=== PATIENT | male | born 1975 | race Two or more races ===

== ENCOUNTER 2018-02-15 10:29 | Emergency (ER) | payer OTHER ==
[~2018-02-15] VITALS: Ht 162.6 cm; Wt 88.5 kg
[~2018-02-15 10:29] MED LIST: SYNTHROID175 MCG PO
== END 2018-02-15 12:23 | disposition home or self-care (01) ==
LOC: ER 10:29
DX: L03.032 Cellulitis of left toe (principal)

== ENCOUNTER 2019-02-23 08:27 | Emergency (ER) | payer OTHER ==
[~2019-02-23] VITALS: Ht 170.2 cm; Wt 84.4 kg
[2019-02-23] MEDS ORDERED: LEVOXYL150 MCG PO (08:44)
== END 2019-02-23 12:45 | disposition home or self-care (01) ==
LOC: ER 08:27
DX: J40 Bronchitis, not specified as acute or chronic (principal)

== ENCOUNTER 2019-10-05 13:10 | Emergency (ER) | payer OTHER ==
[~2019-10-05] VITALS: Ht 167.6 cm; Wt 82.6 kg
[~2019-10-05 13:10] MED LIST changes: +LEVOXYL150 MCG PO
[2019-10-05] MEDS ORDERED: NORFLEX100MG PO (15:07)
[2019-10-05] MEDS ORDERED: KETO10TA2 PO (15:07)
[2019-10-05] MEDS ORDERED: MEDROLPACK PO (15:07)
== END 2019-10-05 15:40 | disposition home or self-care (01) ==
LOC: ER 13:10
DX: S33.5XXA Sprain of ligaments of lumbar spine, initial encounter (principal); M54.5 Low back pain; X50.9XXA Other and unspecified overexertion or strenuous movements or postures, initial encounter; Y93.89 Activity, other specified; Y92.89 Other specified places as the place of occurrence of the external cause; Y99.8 Other external cause status

== ENCOUNTER 2021-01-19 12:34 | Emergency (ER) | payer OTHER ==
[~2021-01-19] VITALS: Ht 170.2 cm; Wt 92.1 kg
[~2021-01-19 12:34] MED LIST changes: +KETO10TA2 PO; +MEDROLPACK PO; +NORFLEX100MG PO
== END 2021-01-19 16:23 | disposition home or self-care (01) ==
LOC: ER 12:34
DX: M54.50 Low back pain, unspecified (principal)

== ENCOUNTER 2021-11-11 04:03 | Emergency (ER) | payer OTHER ==
[~2021-11-11] VITALS: Ht 170.2 cm; Wt 88.9 kg
== END 2021-11-11 05:35 | disposition home or self-care (01) ==
LOC: ER 04:03
DX: M54.9 Dorsalgia, unspecified (principal)